=== PATIENT | male | born 1935 | race African-American/Black ===

== ENCOUNTER 2017-12-07 19:42 | Inpatient (IN) | payer MEDICARE, BC ==
[~2017-12-07] VITALS: Ht 193 cm; Wt 120.0 kg
[~2017-12-07 19:42] MED LIST: HYDR50TA5 PO; LORT5TAB PO; [UNRECOGNIZED DRUG - OTHER] PO
[2017-12-07] MEDS ORDERED: IOHEXOL 350 MG/ML 10 ML VIAL (for RAD DIAG) IVCONTRAST ONE (19:43)
[2017-12-07 19:48] VITALS: BP 196/95; PULSE 74; RESP 18; TEMP 98.6; O2SAT 100
[2017-12-07] MEDS ORDERED: NIFE30TA61 PO (20:36)
[2017-12-07] MEDS ORDERED: GLIM1 PO (20:37)
[2017-12-07] MEDS ORDERED: TIMO0.5S30 RIGHT EYE (20:38)
[2017-12-07] MEDS ORDERED: SODIUM CHLORID 0.9% 500 ML INJ 500 ML IV ONE (21:00)
[2017-12-07] MEDS ORDERED: SODIUM CHLORIDE 0.9% FLUSH 10 ML FLUSH IV FLUSH PRN (21:00)
[2017-12-07] MEDS ORDERED: MORPHINE SULFATE 4 MG/ML INJ IV PUSH ONE (21:00)
[2017-12-07 21:53] LABS: HEMATOCRIT 41.2 % (39.0-51.0); HEMOGLOBIN 14.1 GM/DL (13.0-17.0); MEAN CELL VOLUME 95.3 FL (80.0-100.0); MEAN CORPUSCULAR HEMOGLOBIN 32.7 PG (27.0-34.0); MEAN CORPUSCULAR HGB CONC 34.3 % (32.0-36.0); MEAN PLATELET VOLUME 10.7 FL (7.0-11.0); PLATELET COUNT 264 TH/MM3 (150-450); RED BLOOD COUNT 4.32 MIL/MM3 (4.50-5.90); RED CELL DISTRIBUTION WIDTH 12.4 % (11.6-17.2); WHITE BLOOD COUNT 9.4 TH/MM3 (4.0-11.0)
[2017-12-07 21:58] LABS: BILIRUBIN, URINE NEG (NEG); BLOOD, URINE NEG (NEG); GLUCOSE,URINE NEG (NEG); KETONE, URINE NEG (NEG); MUCUS URINE FEW /lpf (OCC); NITRITE,URINE NEG (NEG); SQUAMOUS EPITHELIAL CELL URINE <1 /hpf (0-5); URINE COLOR YELLOW (YELLW/STRAW); URINE LEUKOCYTE ESTERASE NEG (NEG)
[2017-12-07 22:08] LABS: INTERNATIONAL NORMALIZED RATIO 1.1 RATIO; PROTHROMBIN TIME - PATIENT 10.7 SEC (9.8-11.6)
[2017-12-07 22:10] LABS: ALBUMIN 4.5 GM/DL (3.4-5.0); AST (GOT) 16 U/L (15-37); BICARBONATE 25.6 MEQ/L (21.0-32.0); BLOOD UREA NITROGEN 15 MG/DL (7-18); CHLORIDE 103 MEQ/L (98-107); CREATININE 1.54 MG/DL (0.60-1.30); GLOMERULAR FILTRATION RATE 53 ML/MIN (>89); GLUCOSE,RANDOM 95 MG/DL (74-106); SODIUM (NA) 136 MEQ/L (136-145)
[2017-12-07 22:14] LABS: ALKALINE PHOSPHATASE 88 U/L (45-117); ALT (GPT) 17 U/L (12-78); TOTAL BILIRUBIN ADULT 1.1 MG/DL (0.2-1.0)
[2017-12-07 22:25] LABS: LYMPHOCYTES 18 % (9-44); MONOCYTES 20 % (0-8); NEUTROPHIL # MANUAL DIFF 5.6 TH/MM3 (1.8-7.7); POLYS (SEG NEUTROPHILS) 60 % (16-70)
--- NOTE | 2017-12-07 23:30 | PD ---
HPI Chief Complaint: Abdominal Pain Time Seen by Provider: 20:38 Travel History International Travel<30 days: No Contact w/Intl Traveler<30days: No Traveled to known affect area: No History of Present Illness HPI Patient is a 82 year old male who comes in complaining of abdominal pain. He says he has pain to entirety of his abdomen and the right side of his back. He says this has been going on for a few days now, coming and going. He denies nausea or vomiting. He does not know if the pain is exacerbated by anything he does. He says he thinks the back pain may be from working out at the gym. He says he had a normal bowel movement yesterday. He denies fever or chills. He took some Aleve at home without relief of his symptoms. Severity is mild. PFSH Past Medical History Diminished Hearing: No Glaucoma: Yes Hypertension: Yes Musculoskeletal: Yes (MIDLEVEL BACK PAIN SINCE LOC ON 05/28/07) Tetanus Vaccination: Never Vaccinated Past Surgical History Eye Surgery: Yes (RIGHT SX) Tonsillectomy: Yes Social History Alcohol Use: No Tobacco Use: No Substance Use: No Allergies-Medications (Allergen,Severity, Reaction): Coded Allergies: Wdbphny-Wpj-Drn Reductase Inhibitor (Verified Allergy, Unknown, 12/07/17) Reported Meds & Prescriptions Reported Meds & Active Scripts Active Reported Timolol Opth Drops 0.5 % Soln 1 Drop RIGHT EYE BID Nifedipine ER 24 HR (Nifedipine) 30 Mg Tab 30 Mg PO DAILY [Ameal] 1 Tab PO DAILY Review of Systems Except as stated in HPI: all other systems reviewed are Neg General / Constitutional: No: Fever, Chills HENT: No: Headaches, Lightheadedness Cardiovascular: No: Chest Pain or Discomfort Respiratory: No: Shortness of Breath Gastrointestinal: Positive: Abdominal Pain, No: Nausea, Vomiting Musculoskeletal: No: Myalgias, Edema Skin: No Rash, No Change in Pigmentation Neurologic: No: Weakness, Dizziness Physical Exam Narrative GENERAL: Awake and alert, in no acute distress. SKIN: Focused skin assessment warm/dry. HEAD: Atraumatic. Normocephalic. EYES: Pupils equal and round. No scleral icterus. ENT: Mucous membranes pink and moist. NECK: Trachea midline. No JVD. CARDIOVASCULAR: Regular rate and rhythm. No murmur appreciated. RESPIRATORY: No accessory muscle use. Clear to auscultation. Breath sounds equal bilaterally. GASTROINTESTINAL: Abdomen soft, nondistended. Mild diffuse tenderness to palpation. No rebound or guarding. No CVA tenderness. MUSCULOSKELETAL: No obvious deformities. No clubbing. No cyanosis. No edema. NEUROLOGICAL: Awake and alert. No obvious cranial nerve deficits. Motor grossly within normal limits. Normal speech. PSYCHIATRIC: Appropriate mood and affect; insight and judgment normal. Data Data Last Documented VS Vital Signs Date Time Temp Pulse Resp B/P (MAP) Pulse Ox O2 Delivery O2 Flow Rate FiO2 12/08/17 00:25 98 Room Air 12/07/17 23:55 82 16 171/96 (121) 12/07/17 19:48 98.6 Orders Orders Complete Blood Count With Diff (12/07/17 20:49) Comprehensive Metabolic Panel (12/07/17 20:49) Lipase (12/07/17 20:49) Prothrombin Time / Inr (Pt) (12/07/17 20:49) Act Partial Throm Time (Ptt) (12/07/17 20:49) Urinalysis - C+S If Indicated (12/07/17 20:49) Ct Abd/Pel W Iv Contrast(Rout) (12/07/17 20:49) Iv Access Insert/Monitor (12/07/17 20:49) Ecg Monitoring (12/07/17 20:49) Oximetry (12/07/17 20:49) Morphine Inj (Morphine Inj) (12/07/17 21:00) Sodium Chloride 0.9% Flush (Ns Flush) (12/07/17 21:00) Sodium Chlorid 0.9% 500 Ml Inj (Ns 500 M (12/07/17 21:00) Iohexol 350 Inj (Omnipaque 350 Inj) (12/07/17 19:43) Us Abdomen Gallbladder (12/08/17 ) Acetamin-Hydrocod 325-5 Mg ([place] 5-325 (12/08/17 03:45) Labs Laboratory Tests Test 12/07/17 21:10 12/07/17 21:36 White Blood Count 9.4 TH/MM3 Red Blood Count 4.32 MIL/MM3 Hemoglobin 14.1 GM/DL Hematocrit 41.2 % Mean Corpuscular Volume 95.3 FL Mean Corpuscular Hemoglobin 32.7 PG Mean Corpuscular Hemoglobin Concent 34.3 % Red Cell Distribution Width 12.4 % Platelet Count 264 TH/MM3 Mean Platelet Volume 10.7 FL CBC Comment AUTO DIFF Differential Total Cells Counted 100 Neutrophils % (Manual) 60 % Lymphocytes % 18 % Monocytes % 20 % Eosinophils % 2 % Neutrophils # (Manual) 5.6 TH/MM3 Differential Comment FINAL DIFF MANUAL Platelet Estimate NORMAL Platelet Morphology Comment NORMAL Prothrombin Time 10.7 SEC Prothromb Time International Ratio 1.1 RATIO Activated Partial Thromboplast Time 28.7 SEC Blood Urea Nitrogen 15 MG/DL Creatinine 1.54 MG/DL Random Glucose 95 MG/DL Total Protein 9.0 GM/DL Albumin 4.5 GM/DL Calcium Level 10.0 MG/DL Alkaline Phosphatase 88 U/L Aspartate Amino Transf (AST/SGOT) 16 U/L Alanine Aminotransferase (ALT/SGPT) 17 U/L Total Bilirubin 1.1 MG/DL Sodium Level 136 MEQ/L Potassium Level 4.6 MEQ/L Chloride Level 103 MEQ/L Carbon Dioxide Level 25.6 MEQ/L Anion Gap 7 MEQ/L Estimat Glomerular Filtration Rate 53 ML/MIN Lipase 163 U/L Urine Color YELLOW Urine Turbidity CLEAR Urine pH 6.0 Urine Specific [place] 1.016 Urine Protein NEG mg/dL Urine Glucose (UA) NEG mg/dL Urine Ketones NEG mg/dL Urine Occult Blood NEG Urine Nitrite NEG Urine Bilirubin NEG Urine Urobilinogen 2.0 mg/dL Urine Leukocyte Esterase NEG Urine RBC LESS THAN 1 /hpf Urine WBC LESS THAN 1 /hpf Urine Squamous Epithelial Cells <1 /hpf Urine Mucus FEW /lpf Microscopic Urinalysis Comment CULT NOT INDICATED MDM Medical Decision Making Medical Screen Exam Complete: Yes Emergency Medical Condition: Yes Medical Record Reviewed: Yes Differential Diagnosis colitis vs diverticulitis vs constipation vs dehydration vs muscle strain Narrative Course Patient is an 82-year-old male who comes in complaining of abdominal pain that radiates to his shoulder. Exam shows tenderness throughout the abdomen. IV established, labs sent. Labs show a total bilirubin of 1.1, no other acute abnormalities. CT abdomen and pelvis performed concerning for gallstones, possible gallbladder wall thickening. Ultrasound of the gallbladder performed shows a gallstone within the common bile duct. There is no evidence of cholecystitis at this time. Last 24 hours Impressions Gall Bladder Ultrasound 12/08/17 0000 Signed Impressions: CONCLUSION: 1. Gallstones are confirmed within the common bile duct in the gallbladder. Th e gallbladder wall is slightly thickened but not directly tender in the right u pper quadrant directly over the gallbladder. Fatty liver. Multiple renal cysts Abdomen/Pelvis CT 12/07/172048 Signed Impressions: CONCLUSION: 1. Multiple gallstones in a dilated common bile duct. Questionable wall thicke lon the gallbladder could be acute cholecystitis. 2. Multiple bladder diverticula Patient given morphine for pain. He then requested hydrocodone for continued pain. He says the hydrocodone helped relieve his symptoms. Patient will need admission for ERCP at this time. Diagnosis Primary Impression: Choledocholithiasis Admitting Information Admitting Physician Requests: Admit Melissa Tolbert MD Dec 07, 2017 23:30
--- NOTE | 2017-12-07 23:46 | RADRPT ---
EXAM DATE: 12/07/2017 11:24 PM EDT AGE/SEX: 82 years / Male INDICATIONS: Abdomen pain past 2 days. CLINICAL DATA: This is the patient's initial encounter. Patient reports that signs and symptoms have been present for 2 days and indicates a pain score of 6/10. MEDICAL/SURGICAL HISTORY: . . ORAL CONTRAST: No oral contrast ingested. RADIATION DOSE: 15.84 CTDI (mGy) COMPARISON: No prior exams available for comparison. TECHNIQUE: Multiple contiguous axial images were obtained through the abdomen and pelvis following b olus infusion of 75 ml Omnipaque 350 (iohexol) nonionic water-soluble contrast as a single exam dos e. No oral contrast ingested. Using automated exposure control and adjustment of the mA and/or kV ac cording to patient size, radiation dose was kept as low as reasonably achievable to obtain optimal di agnostic quality images. DICOM format image data is available electronically for review and comparis on. FINDINGS: Lower Lungs: The visualized lower lungs are clear. Liver: The liver has a homogeneous density without space-occupying lesion. The gallbladder is distend ed with some areas of inhomogeneous liver which could be thickened. There are some mixed density and a dilated common bile duct measuring up to 15 mm across consistent with gallstones. Spleen: Homogeneous density without enlargement. Pancreas: Unremarkable without mass or calcification. Kidneys: There are multiple low-density lesions in the right kidney and a few small remote left kidn ey. Small cortical calcification on the left. Adrenal Glands: Unremarkable. Aorta: The aorta and proximal iliac vessels are grossly unremarkable without aneurysmal dilation. Bowel/Mesentery: The bowel loops are grossly unremarkable. The cecum and sigmoid colon have a normal configuration. Abdominal Wall: Intact. Retroperitoneum: No evidence of adenopathy in the retrocrural, para-aortic, or deep pelvic regions. Bladder: Contours are smooth with at least one diverticulum anteriorly on the left. Markers within t he prostate Reproductive Organs: No abnormal masses or calcifications seen. Inguinal: The inguinal region is unremarkable without evidence of adenopathy. Bony Structures: Unremarkable. CONCLUSION: 1. Multiple gallstones in a dilated common bile duct. Questionable wall thickening the gallbladder c ould be acute cholecystitis. 2. Multiple bladder diverticula Electronically signed by: Oracio Nuñez MD 12/07/2017 11:45 PM EDT
[2017-12-07 23:55] VITALS: BP 171/96; PULSE 82; RESP 16; O2SAT 98
[2017-12-08] VITALS (7 sets, daily range): BP systolic 157–165; BP diastolic 77–94; PULSE 58–84; RESP 16–19; TEMP 97.6–98.7; O2SAT 97–100
[2017-12-08] MEDS ORDERED: ACETAMINOPHEN/HYDROcodone 325 MG/5 MG TAB PO ONE (03:45)
--- NOTE | 2017-12-08 04:09 | RADRPT ---
EXAM DATE: 12/08/2017 3:59 AM EDT AGE/SEX: 82 years / Male INDICATIONS: RUQ pain. CLINICAL DATA: This is the patient's initial encounter. Patient reports that signs and/or symptoms h ave been present for 1 day and indicates a pain score of 7/10. MEDICAL/SURGICAL HISTORY: Hypertension. Glaucoma. . Right eye. Left elbow. COMPARISON: No prior exams available for comparison. MEASUREMENTS (cm x cm x cm): Liver:__ 16.0 cm length Common Bile Duct:__ 10mm FINDINGS: Liver: Increased echotexture without focal lesion or ductal dilation. Portal Vein: Hepatopedal flow seen in portal vein. Common Duct: A small gallstones identified in the common bile duct. Gallbladder: Numerous small stones are noted. Slight gallbladder wall thickening but not obviously t wilber over the gallbladder Pancreas: Not well visualized. Right Kidney: Multiple cysts are noted. The pneumocephalus cyst does have a few small thin septation s. Other: None. CONCLUSION: 1. Gallstones are confirmed within the common bile duct in the gallbladder. The gallbladder wall is slightly thickened but not directly tender in the right upper quadrant directly over the gallbladder. Fatty liver. Multiple renal cysts Electronically signed by: Oracio Nuñez MD 12/08/2017 4:08 AM EDT
[2017-12-08] MEDS ORDERED: SENNOSIDES 8.6 MG TAB PO PRN (04:45)
[2017-12-08] MEDS ORDERED: NALOXONE HCL 0.4 MG/ML AMP IV PUSH PRN (04:45)
[2017-12-08] MEDS ORDERED: SODIUM CHLORIDE 0.9% FLUSH 10 ML FLUSH IV FLUSH PRN (04:45)
[2017-12-08] MEDS ORDERED: BISACODYL 10 MG SUPP RECTAL PRN (04:45)
[2017-12-08] MEDS ORDERED: ACETAMINOPHEN 325 MG TAB PO PRN (04:45)
[2017-12-08] MEDS ORDERED: LACTULOSE SYRUP 20 GM/30 ML CUP PO PRN (04:45)
[2017-12-08] MEDS ORDERED: MAGNESIUM HYDROXIDE SUSP 30 ML CUP PO PRN (04:45)
[2017-12-08] MEDS: SODIUM CHLOR 0.9% 1000 ML INJ 1,000 ML IV SCH ×2 (04:58→15:00)
[2017-12-08] MEDS ORDERED: ONDANSETRON ODT 4 MG TAB PO PRN (05:00)
--- NOTE | 2017-12-08 08:56 | PD.CONS ---
HPI History of Present Illness This is a 82 year old M with PMH significant for HTN and glaucoma who presented to the ER late last night with complaints of abdominal pain that began two days ago. Pain is located in his upper abdomen. Describes pain as dull, sharp, and aching. States pain is constant, radiates to the right side of his back. Has received relief in the pain since receiving [place]. Denies any associated nausea and vomiting. Denies changes in bowel habits, acid reflux, heartburn. T bili is mildly elevated, LFTs otherwise normal. Imaging consistent with choledocholithiasis. Pt denies history of gallstones. Has never had EGD or colonoscopy. Denies ETOH, smoking, and illicit drug use. Takes Aleve occasionally for pain. (Janeth Gutierrez) PFSH Past Medical History HTN Glaucoma Past Surgical History Bladder stone removal (Janeth Gutierrez) Coded Allergies: Ixgqrop-Vpd-Jed Reductase Inhibitor (Verified Allergy, Unknown, 12/07/17) Social History Denies ETOH Denies smoking Denies illicit drug use (Janeth Gutierrez) Review of Systems Gastrointestinal: COMPLAINS OF: Abdominal pain, DENIES: Black stools, Bloody stools, Constipation, Diarrhea, Nausea, Vomiting, Difficulty Swallowing, Odynophagia, Swelling of Abdomen, Heartburn, Hematemesis (Janeth Gutierrez) GI Exam Vitals I&O Vital Signs Date Time Temp Pulse Resp B/P (MAP) Pulse Ox O2 Delivery O2 Flow Rate FiO2 12/08/17 08:46 97.6 58 19 163/85 (111) 100 12/08/17 04:44 69 16 157/89 (111) 98 Room Air 12/08/17 00:25 98 Room Air 12/07/17 23:55 82 16 171/96 (121) 98 Room Air 12/07/17 19:48 98.6 74 18 196/95 (128) 100 Imaging Last Impressions Gall Bladder Ultrasound 12/08/17 0000 Signed Impressions: CONCLUSION: 1. Gallstones are confirmed within the common bile duct in the gallbladder. Th e gallbladder wall is slightly thickened but not directly tender in the right u pper quadrant directly over the gallbladder. Fatty liver. Multiple renal cysts Abdomen/Pelvis CT 12/07/172048 Signed Impressions: CONCLUSION: 1. Multiple gallstones in a dilated common bile duct. Questionable wall thicke lon the gallbladder could be acute cholecystitis. 2. Multiple bladder diverticula Laboratory Test 12/07/17 21:10 12/07/17 21:36 White Blood Count 9.4 TH/MM3 Red Blood Count 4.32 MIL/MM3 Hemoglobin 14.1 GM/DL Hematocrit 41.2 % Mean Corpuscular Volume 95.3 FL Mean Corpuscular Hemoglobin 32.7 PG Mean Corpuscular Hemoglobin Concent 34.3 % Red Cell Distribution Width 12.4 % Platelet Count 264 TH/MM3 Mean Platelet Volume 10.7 FL CBC Comment AUTO DIFF Differential Total Cells Counted 100 Neutrophils % (Manual) 60 % Lymphocytes % 18 % Monocytes % 20 % Eosinophils % 2 % Neutrophils # (Manual) 5.6 TH/MM3 Differential Comment FINAL DIFF MANUAL Platelet Estimate NORMAL Platelet Morphology Comment NORMAL Prothrombin Time 10.7 SEC Prothromb Time International Ratio 1.1 RATIO Activated Partial Thromboplast Time 28.7 SEC Blood Urea Nitrogen 15 MG/DL Creatinine 1.54 MG/DL Random Glucose 95 MG/DL Total Protein 9.0 GM/DL Albumin 4.5 GM/DL Calcium Level 10.0 MG/DL Alkaline Phosphatase 88 U/L Aspartate Amino Transf (AST/SGOT) 16 U/L Alanine Aminotransferase (ALT/SGPT) 17 U/L Total Bilirubin 1.1 MG/DL Sodium Level 136 MEQ/L Potassium Level 4.6 MEQ/L Chloride Level 103 MEQ/L Carbon Dioxide Level 25.6 MEQ/L Anion Gap 7 MEQ/L Estimat Glomerular Filtration Rate 53 ML/MIN Lipase 163 U/L Urine Color YELLOW Urine Turbidity CLEAR Urine pH 6.0 Urine Specific [place] 1.016 Urine Protein NEG mg/dL Urine Glucose (UA) NEG mg/dL Urine Ketones NEG mg/dL Urine Occult Blood NEG Urine Nitrite NEG Urine Bilirubin NEG Urine Urobilinogen 2.0 mg/dL Urine Leukocyte Esterase NEG Urine RBC LESS THAN 1 /hpf Urine WBC LESS THAN 1 /hpf Urine Squamous Epithelial Cells <1 /hpf Urine Mucus FEW /lpf Microscopic Urinalysis Comment CULT NOT INDICATED Physical Examination HEENT: Normocephalic; atraumatic CHEST: Even/unlabored CARDIAC: RRR ABDOMEN: Soft, nondistended, mild upper abdominal tenderness, bowel sounds active EXTREMITIES: No clubbing, cyanosis, or edema. SKIN: Normal; no rash; no jaundice. GRIND OPERATOR: Alert and oriented times three. (Janeth Gutierrez) Assessment and Plan Plan Assessment: - Choledocholithiasis Pt complaining of upper abdominal pain for the past two days, radiating to the right side of his back, states constant, described as sharp, dull, and aching. Denies associated nausea and vomiting. T bili slightly elevated at 1.1 otherwise LFTs WNL Gallbladder US --> Gallstones are confirmed within the common bile duct in the gallbladder. The gallbladder wall is slightly thickened but not directly tender in the right upper quadrant directly over the gallbladder. Fatty liver. Multiple renal cysts CT abdomen and pelvis W IV contrast --> Multiple gallstones in a dilated common bile duct. Questionable wall thickening the gallbladder could be acute cholecystitis. Multiple bladder diverticula Pt has never had EGD Plan: ERCP today Obtain consent Keep NPO Monitor labs Further recommendations based on findings of above Pt has been seen and examined by myself and Dr. Lan and this note is written on his behalf (Janeth Gutierrez) Physician Comments Seen and examined with TORI, cholidocholithiasis. ERCP today by Dr Bhardwaj. Monitor labs. Dr Daley to follow. Thank you (Sekou Lan MD) Janeth Gutierrez Dec 08, 2017 08:55 Sekou Lan MD Dec 08, 2017 17:17
[2017-12-08] MEDS: TIMOLOL MALEATE 0.5% OPHT SOLN 5 ML BTL RIGHT EYE SCH ×2 (09:00→22:54)
--- NOTE | 2017-12-08 10:32 | HHI.HP ---
[facility] Service [facility] Primary Care Physician Kvng Mitchell M.D. Admission Diagnosis choledocalithiasis Diagnoses: Chief Complaint: abd pain Travel History International Travel<30 Days: No Contact w/Intl Traveler <30 Da: No Traveled to Known Affected Are: No History of Present Illness 82-year-old black male being admitted for intractable abdominal pain Patient was in his usual state of health until sometime yesterday when he began experiencing epigastric abdominal pain that would radiate to his back up to his right shoulder blade. Denies having nausea vomiting or any changes in his bowel habits. Says he took some Gas-X and relieved to no avail. Thus he decided come to emergency department. Denies any fevers or chills In the emergency department gallbladder ultrasound was obtained which showed some gallbladder thickening and stones in the common bile duct. CMP overall was unremarkable. CT abd showing no significant acute findings apart from gallstones in CBD. Patient says that the hydrocodone that they gave him actually helped his pain significantly. Review of Systems Except as stated in HPI: all other systems reviewed are Neg Past Family Social History Past Medical History HTN Glaucoma Past Surgical History Bladder stone removal Allergies: Coded Allergies: Rypidjp-Znp-Jiv Reductase Inhibitor (Verified Allergy, Unknown, 12/07/17) Family History Father with lung disease Says mother of drinking Social History Denies illicit drug use Says he stopped smoking and drinking over 40 years ago Physical Exam Vital Signs Vital Signs Date Time Temp Pulse Resp B/P (MAP) Pulse Ox O2 Delivery O2 Flow Rate FiO2 12/08/17 08:46 97.6 58 19 163/85 (111) 100 12/08/17 04:44 69 16 157/89 (111) 98 Room Air 12/08/17 00:25 98 Room Air 12/07/17 23:55 82 16 171/96 (121) 98 Room Air 12/07/17 19:48 98.6 74 18 196/95 (128) 100 Physical Exam VS: afebrile GENERAL: well-nourished elderly black male SKIN: Warm and dry. EYES: P No scleral icterus. No injection or drainage. ENT: No nasal bleeding or discharge. Mucous membranes pink and moist. CARDIOVASCULAR: Regular rate and rhythm. no murmurs RESPIRATORY: No accessory muscle use. Clear to auscultation. Breath sounds equal bilaterally. GASTROINTESTINAL: Abdomen soft, non-tender, nondistended. Extremities: No clubbing, cyanosis, or edema. No obvious deformities. MUSCULOSKELETAL: adequate muscle bulk and tone for age and habitus NEUROLOGICAL: Awake and alert. No obvious cranial nerve deficits. No facial droop nor slurred speech noted. PSYCHIATRIC: Appropriate mood and affect; insight and judgment normal. Laboratory Laboratory Tests Test 12/07/17 21:10 12/07/17 21:36 White Blood Count 9.4 Red Blood Count 4.32 Hemoglobin 14.1 Hematocrit 41.2 Mean Corpuscular Volume 95.3 Mean Corpuscular Hemoglobin 32.7 Mean Corpuscular Hemoglobin Concent 34.3 Red Cell Distribution Width 12.4 Platelet Count 264 Mean Platelet Volume 10.7 CBC Comment AUTO DIFF Differential Total Cells Counted 100 Neutrophils % (Manual) 60 Lymphocytes % 18 Monocytes % 20 Eosinophils % 2 Neutrophils # (Manual) 5.6 Differential Comment FINAL DIFF MANUAL Platelet Estimate NORMAL Platelet Morphology Comment NORMAL Prothrombin Time 10.7 Prothromb Time International Ratio 1.1 Activated Partial Thromboplast Time 28.7 Blood Urea Nitrogen 15 Creatinine 1.54 Random Glucose 95 Total Protein 9.0 Albumin 4.5 Calcium Level 10.0 Alkaline Phosphatase 88 Aspartate Amino Transf (AST/SGOT) 16 Alanine Aminotransferase (ALT/SGPT) 17 Total Bilirubin 1.1 Sodium Level 136 Potassium Level 4.6 Chloride Level 103 Carbon Dioxide Level 25.6 Anion Gap 7 Estimat Glomerular Filtration Rate 53 Lipase 163 Urine Color YELLOW Urine Turbidity CLEAR Urine pH 6.0 Urine Specific [place] 1.016 Urine Protein NEG Urine Glucose (UA) NEG Urine Ketones NEG Urine Occult Blood NEG Urine Nitrite NEG Urine Bilirubin NEG Urine Urobilinogen 2.0 Urine Leukocyte Esterase NEG Urine RBC LESS THAN 1 Urine WBC LESS THAN 1 Urine Squamous Epithelial Cells <1 Urine Mucus FEW Microscopic Urinalysis Comment CULT NOT INDICATED Result Diagram: 12/07/17210912/07/172109 Imaging Last Impressions Gall Bladder Ultrasound 12/08/17 0000 Signed Impressions: CONCLUSION: 1. Gallstones are confirmed within the common bile duct in the gallbladder. Th e gallbladder wall is slightly thickened but not directly tender in the right u pper quadrant directly over the gallbladder. Fatty liver. Multiple renal cysts Abdomen/Pelvis CT 12/07/172048 Signed Impressions: CONCLUSION: 1. Multiple gallstones in a dilated common bile duct. Questionable wall thicke lon the gallbladder could be acute cholecystitis. 2. Multiple bladder diverticula Caprini VTE Risk Assessment Caprini VTE Risk Assessment: Mod/High Risk (score >= 2) Caprini Risk Assessment Model Point Value = 1 Point Value = 2 Point Value = 3 Point Value = 5 Age 41-60 Minor surgery BMI > 25 kg/m2 Swollen legs Varicose veins or History of unexplained or recurrent spontaneous Oral contraceptives or hormone replacement Sepsis (< 1 month) Serious lung disease, including pneumonia (< 1 month) Abnormal pulmonary function Acute myocardial infarction Congestive heart failure (< 1 month) History of inflammatory bowel disease Medical patient at bed rest Age 61-74 Arthroscopic surgery Major open surgery (> 45 min) Laparoscopic surgery (> 45 min) Malignancy Confined to bed (> 72 hours) Immobilizing plaster cast Central venous access Age >= 75 History of VTE Family history of VTE Factor V Leiden Prothrombin 20298P Lupus anticoagulant Anticardiolipin antibodies Elevated serum homocysteine Heparin-induced thrombocytopenia Other congenital or acquired thrombophilia Stroke (< 1 month) Elective arthroplasty Hip, pelvis, or leg fracture Acute spinal cord injury (< 1 month) Prophylaxis Regimen Total Risk Factor Score Risk Level Prophylaxis Regimen 0-1 Low Early ambulation 2 Moderate Order ONE of the following: *Sequential Compression Device (SCD) *Heparin 5000 units SQ BID 3-4 Higher Order ONE of the following medications: *Heparin 5000 units SQ TID *Enoxaparin/Lovenox 40 mg SQ daily (WT < 150 kg, CrCl > 30 mL/min) *Enoxaparin/Lovenox 30 mg SQ daily (WT < 150 kg, CrCl > 10-29 mL/min) *Enoxaparin/Lovenox 30 mg SQ BID (WT < 150 kg, CrCl > 30 mL/min) AND/OR *Sequential Compression Device (SCD) 5 or more Highest Order ONE of the following medications: *Heparin 5000 units SQ TID (Preferred with Epidurals) *Enoxaparin/Lovenox 40 mg SQ daily (WT < 150 kg, CrCl > 30 mL/min) *Enoxaparin/Lovenox 30 mg SQ daily (WT < 150 kg, CrCl > 10-29 mL/min) *Enoxaparin/Lovenox 30 mg SQ BID (WT < 150 kg, CrCl > 30 mL/min) AND *Sequential Compression Device (SCD) Assessment and Plan Assessment and Plan 82-year-old black male being admitted for intractable abdominal pain Abdominal pain -GI consulted for possible ERCP -N.p.o -[place] as needed pain -CMP unremarkable Continue home nifedipine for hypertension and timolol for glaucoma Mild EWA -NS Hold lovenox given procedure planned Physician Certification 2 Midnight Certification Type: Admission for Inpatient Services Order for Inpatient Services The services are ordered in accordance with Medicare regulations or non- Medicare payer requirements, as applicable. In the case of services not specified as inpatient-only, they are appropriately provided as inpatient services in accordance with the 2-midnight benchmark. Estimated LOS (days): 2 2 days is the estimated time the patient will need to remain in the hospital, assuming treatment plan goals are met and no additional complications. Post-Hospital Plan: Home Rubén Hart MD Dec 08, 2017 10:32
[2017-12-08] MEDS: DOCUSATE SODIUM 50 MG/SENNA 8.6 MG TAB PO SCH ×2 (11:41→22:54)
[2017-12-08] MEDS: NIFEdipine 30 MG SUSTAINED RELEASE TAB PO SCH (11:41)
[2017-12-08] MEDS: SODIUM CHLORIDE 0.9% FLUSH 10 ML FLUSH IV FLUSH SCH ×2 (11:42→22:54)
[2017-12-08] MEDS ORDERED: ROCURONIUM INJ 50 MG/5 ML SYRINGE IV PUSH ONE (12:00)
[2017-12-08] MEDS ORDERED: LIDOCAINE HCL 1% PF 5 ML SYRINGE OTHER ONE (12:00)
[2017-12-08] MEDS ORDERED: PROPOFOL 200 MG/20 ML AMP IV ONE (12:00)
[2017-12-08] MEDS ORDERED: ePHEDrine/NS 25 MG/5 ML SYRINGE IV ONE (12:00)
[2017-12-08] MEDS ORDERED: DEXAMETHASONE SOD PHOS 4 MG/ML VIAL IV ONE (12:00)
[2017-12-08] MEDS ORDERED: GLYCOPYRROLATE 1 MG/5 ML SYRINGE IV PUSH ONE (12:00)
[2017-12-08] MEDS ORDERED: ONDANSETRON HCL 4 MG/2 ML VIAL IV ONE (12:00)
[2017-12-08] MEDS: ACETAMINOPHEN/HYDROcodone 325 MG/5 MG TAB PO PRN (13:37)
[2017-12-08] MEDS ORDERED: GEMF600T PO (13:40)
[2017-12-08] MEDS ORDERED: SUGAMMADEX SODIUM 200 MG/2 ML VIAL IV PUSH ONE (17:13)
[2017-12-08] MEDS ORDERED: INDOMETHACIN 50 MG SUPP RECTAL ONE (17:44)
[2017-12-08] MEDS ORDERED: CIPROFLOXACIN 400 MG PREMIX 200 ML ONE (17:51)
[2017-12-08] MEDS ORDERED: IOHEXOL 350 MG/ML 50 ML BTL (for RAD DIAG) OTHER ONE (18:10)
[2017-12-08] MEDS ORDERED: GLUCAGON 1 MG/ML VIAL IV PUSH ONE (18:12)
[2017-12-08] MEDS ORDERED: DO NOT ADM ANY ANTICOAGULANT DRUGS PRN (20:15)
[2017-12-09 02:58] VITALS: BP 134/74; PULSE 85; RESP 16; TEMP 98.7; O2SAT 98
[2017-12-09] MEDS: SODIUM CHLOR 0.9% 1000 ML INJ 1,000 ML IV SCH (05:05)
[2017-12-09] MEDS: ACETAMINOPHEN/HYDROcodone 325 MG/5 MG TAB PO PRN ×2 (05:10→08:21)
[2017-12-09] MEDS ORDERED: CIPROFLOXACIN/DEXT 400 MG/200 ML IV SCH (06:00)
[2017-12-09 06:18] LABS: AUTOMATED NEUTROPHIL # 6.6 TH/MM3 (1.8-7.7); BASOPHIL % 0.1 % (0.0-2.0); EOSINOPHIL % 0.1 % (0.0-4.0); HEMATOCRIT 39.9 % (39.0-51.0); HEMOGLOBIN 13.3 GM/DL (13.0-17.0); LYMPH % 10.1 % (9.0-44.0); LYMPHOCYTE # 0.8 TH/MM3 (1.0-4.8); MEAN CELL VOLUME 94.7 FL (80.0-100.0); MEAN CORPUSCULAR HEMOGLOBIN 31.6 PG (27.0-34.0); MEAN CORPUSCULAR HGB CONC 33.4 % (32.0-36.0); MEAN PLATELET VOLUME 9.5 FL (7.0-11.0); MONOCYTE # 0.7 TH/MM3 (0-0.9); NEUT % 81.7 % (16.0-70.0); PLATELET COUNT 222 TH/MM3 (150-450); RED BLOOD COUNT 4.21 MIL/MM3 (4.50-5.90); RED CELL DISTRIBUTION WIDTH 12.4 % (11.6-17.2); WHITE BLOOD COUNT 8.1 TH/MM3 (4.0-11.0)
[2017-12-09 06:42] LABS: ALBUMIN 4.2 GM/DL (3.4-5.0); ALT (GPT) 21 U/L (12-78); AST (GOT) 27 U/L (15-37); BICARBONATE 26.8 MEQ/L (21.0-32.0); BLOOD UREA NITROGEN 15 MG/DL (7-18); CALCIUM 9.4 MG/DL (8.5-10.1); CHLORIDE 102 MEQ/L (98-107); CREATININE 1.49 MG/DL (0.60-1.30); GLOMERULAR FILTRATION RATE 55 ML/MIN (>89); GLUCOSE,RANDOM 111 MG/DL (74-106); SODIUM (NA) 138 MEQ/L (136-145)
[2017-12-09 06:44] LABS: ALKALINE PHOSPHATASE 90 U/L (45-117); TOTAL BILIRUBIN ADULT 0.9 MG/DL (0.2-1.0); TOTAL PROTEIN 8.7 GM/DL (6.4-8.2)
[2017-12-09 07:25] VITALS: BP 165/76; PULSE 85; RESP 19; TEMP 98.3; O2SAT 100
--- NOTE | 2017-12-09 07:33 | EKG ---
Date Performed: 12/08/2017 Time Performed: 17:28:33 PTAGE: 82 years EKG: Sinus rhythm WITH SINUS ARRHYTHMIA MARKED LEFT AXIS DEVIATION ABNORMAL ECG INTERPRETATION BASED ON A DEFAULT AGE OF 40 YEARS PREVIOUS TRACING : 03/25/2008 17.15 DOCTOR: Oracio Moran Interpretating Date/Time 12/09/2017 07:30:14
[2017-12-09] MEDS: NIFEdipine 30 MG SUSTAINED RELEASE TAB PO SCH (08:21)
[2017-12-09] MEDS: TIMOLOL MALEATE 0.5% OPHT SOLN 5 ML BTL RIGHT EYE SCH (08:22)
[2017-12-09] MEDS: DOCUSATE SODIUM 50 MG/SENNA 8.6 MG TAB PO SCH (08:22)
[2017-12-09] MEDS: SODIUM CHLORIDE 0.9% FLUSH 10 ML FLUSH IV FLUSH SCH (08:22)
--- NOTE | 2017-12-09 09:35 | HHI.GIFU ---
Subjective Remarks Pt reports some pain this morning, resolved after taking [place] Denies nausea and vomiting He is currently NPO Would like diet advanced Objective Vitals I&O Vital Signs Date Time Temp Pulse Resp B/P (MAP) Pulse Ox O2 Delivery O2 Flow Rate FiO2 12/09/17 07:25 98.3 85 19 165/76 (105) 100 12/09/17 06:10 14 12/09/17 02:58 98.7 85 16 134/74 (94) 98 12/08/17 23:36 98.7 84 17 161/81 (107) 97 12/08/17 20:15 97.3 92 14 156/88 (110) 99 Room Air 12/08/17 20:00 96 14 135/74 (94) 100 Room Air 12/08/17 19:55 97.3 103 14 128/86 (100) 100 Nasal Cannula 2 12/08/17 16:45 97.9 63 18 165/94 (117) 100 12/08/17 13:02 97.7 58 19 165/77 (106) 100 12/08/17 12:08 97.7 58 19 165/77 (106) 100 I/O 12/08/17 12/08/17 12/08/17 12/09/17 12/09/17 12/09/17 07:00 15:00 23:00 07:00 15:00 23:00 Intake Total 500 ml 2600 ml Output Total 650 ml Balance 500 ml 2600 ml -650 ml Intake IV Total 500 ml 1200 ml Other 1400 ml Output Urine Total 650 ml # Voids 5 Laboratory Laboratory Tests Test 12/09/17 05:20 White Blood Count 8.1 Red Blood Count 4.21 Hemoglobin 13.3 Hematocrit 39.9 Mean Corpuscular Volume 94.7 Mean Corpuscular Hemoglobin 31.6 Mean Corpuscular Hemoglobin Concent 33.4 Red Cell Distribution Width 12.4 Platelet Count 222 Mean Platelet Volume 9.5 Neutrophils (%) (Auto) 81.7 Lymphocytes (%) (Auto) 10.1 Monocytes (%) (Auto) 8.0 Eosinophils (%) (Auto) 0.1 Basophils (%) (Auto) 0.1 Neutrophils # (Auto) 6.6 Lymphocytes # (Auto) 0.8 Monocytes # (Auto) 0.7 Eosinophils # (Auto) 0.0 Basophils # (Auto) 0.0 CBC Comment DIFF FINAL Differential Comment Blood Urea Nitrogen 15 Creatinine 1.49 Random Glucose 111 Total Protein 8.7 Albumin 4.2 Calcium Level 9.4 Alkaline Phosphatase 90 Aspartate Amino Transf (AST/SGOT) 27 Alanine Aminotransferase (ALT/SGPT) 21 Total Bilirubin 0.9 Sodium Level 138 Potassium Level 4.3 Chloride Level 102 Carbon Dioxide Level 26.8 Anion Gap 9 Estimat Glomerular Filtration Rate 55 Imaging Last Impressions Gall Bladder Ultrasound 12/08/17 0000 Signed Impressions: CONCLUSION: 1. Gallstones are confirmed within the common bile duct in the gallbladder. Th e gallbladder wall is slightly thickened but not directly tender in the right u pper quadrant directly over the gallbladder. Fatty liver. Multiple renal cysts Abdomen/Pelvis CT 12/07/172048 Signed Impressions: CONCLUSION: 1. Multiple gallstones in a dilated common bile duct. Questionable wall thicke lon the gallbladder could be acute cholecystitis. 2. Multiple bladder diverticula Physical Exam HEENT: Normocephalic; atraumatic CHEST: Even/unlabored CARDIAC: RRR ABDOMEN: Soft, nondistended, nontender; bowel sounds active EXTREMITIES: No clubbing, cyanosis, or edema. SKIN: Normal; no rash; no jaundice. [employer]PI[employer] DEVELOPER: Alert and oriented times three. Assessment and Plan Plan Assessment: - Choledocholithiasis Pt complaining of upper abdominal pain for the past two days, radiating to the right side of his back, states constant, described as sharp, dull, and aching. Denies associated nausea and vomiting. T bili slightly elevated at 1.1 otherwise LFTs WNL Gallbladder US --> Gallstones are confirmed within the common bile duct in the gallbladder. The gallbladder wall is slightly thickened but not directly tender in the right upper quadrant directly over the gallbladder. Fatty liver. Multiple renal cysts CT abdomen and pelvis W IV contrast --> Multiple gallstones in a dilated common bile duct. Questionable wall thickening the gallbladder could be acute cholecystitis. 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 Multiple large stones 10-12 mm in size seen in CBD, CHD, no attempt made to remove them as sphincterotome could not be advanced deep into the CBD, LINDA tip catheter was used for deep cannulation (12/09) Pt reports some RUQ pain this morning, resolved after a [place]. Denies nausea and vomiting. LFTs remain unremarkable. Afebrile, no leukocytosis. Pt currently NPO and would like diet advanced. Plan: Full liquids Can advance to regular diet at lunch if tolerating OK to DC if pt tolerating PO and asymptomatic Spyglass done outpatient to break up the stone Have pt follow up with GI after DC Pt has been seen and examined by myself and Dr. Daley and this note is written on her behalf Janeth Gutierrez Dec 09, 2017 09:35
[2017-12-09 11:04] VITALS: BP 177/74; PULSE 97; RESP 19; TEMP 98.4; O2SAT 99
[2017-12-09] MEDS ORDERED: HYDR-3516 PO (11:14)
--- NOTE | 2017-12-09 11:14 | HHI.DCPOC ---
Discharge Care Plan Diagnosis: (1) Choledocholithiasis Goals to Promote Your Health * To prevent worsening of your condition and complications * To maintain your health at the optimal level Directions to Meet Your Goals Take your medications as prescribed Follow your dietary instruction Follow activity as directed Keep your appointments as scheduled Take your immunizations and boosters as scheduled If your symptoms worsen call your PCP, if no PCP go to Urgent Care Center or Emergency Room Smoking is Dangerous to Your Health. Avoid second hand smoke Call the 24-hour hour crisis hotline for domestic abuse at Rubén Hart MD Dec 09, 2017 11:14
--- NOTE | 2017-12-09 11:17 | HHI.PR ---
Subjective Remarks Nursing denies any deterioration since last night. Patient himself reports his pain is still there but much improved since admission and is responding very nicely with hydrocodone. Objective Vital Signs Date Time Temp Pulse Resp B/P (MAP) Pulse Ox O2 Delivery O2 Flow Rate FiO2 12/09/17 11:04 98.4 97 19 177/74 (108) 99 12/09/17 09:39 20 12/09/17 07:25 98.3 85 19 165/76 (105) 100 12/09/17 02:58 98.7 85 16 134/74 (94) 98 12/08/17 23:36 98.7 84 17 161/81 (107) 97 12/08/17 20:15 97.3 92 14 156/88 (110) 99 Room Air 12/08/17 20:00 96 14 135/74 (94) 100 Room Air 12/08/17 19:55 97.3 103 14 128/86 (100) 100 Nasal Cannula 2 12/08/17 16:45 97.9 63 18 165/94 (117) 100 12/08/17 13:02 97.7 58 19 165/77 (106) 100 12/08/17 12:08 97.7 58 19 165/77 (106) 100 I/O 12/08/17 12/08/17 12/08/17 12/09/17 12/09/17 12/09/17 07:00 15:00 23:00 07:00 15:00 23:00 Intake Total 500 ml 2600 ml Output Total 650 ml Balance 500 ml 2600 ml -650 ml Intake IV Total 500 ml 1200 ml Other 1400 ml Output Urine Total 650 ml # Voids 5 Result Diagram: 12/09/17 0520 12/09/17 0520 Objective Remarks Abdomen soft, nontender, nondistended A/P Assessment and Plan Choledocholithiasis -Status post ERCP with stent placement. Repeat ERCP with stone extraction/ destruction anticipated in the next few weeks. P.o. pain medication as needed. Stable for discharge today if tolerating p.o. intake. Rubén Hart MD Dec 09, 2017 11:17
--- NOTE | 2017-12-09 12:55 | RADRPT ---
EXAM DATE: 12/09/2017 12:36 PM EDT AGE/SEX: 82 years / Male INDICATIONS: Biliary obstruction. CLINICAL DATA: This is the patient's initial encounter. Patient reports that signs and symptoms have been present for 2 days and indicates a pain score of Nonresponsive. MEDICAL/SURGICAL HISTORY: None. None. COMPARISON: [facility] [place], CT ABDOMEN & PELVIS W CONTRAST, 12/07/2017. . FINDINGS: An ERCP was performed by the ordering physician. The images demonstrate multiple filling defects in the common bile duct. Common bile duct is dilated measuring at least 1 cm, it is as large as the endo scope. On the final image, there is a biliary stent in good position. CONCLUSION: Choledocholithiasis with a stent left in place. Electronically signed by: Stephen Elizabeth MD 12/09/2017 12:54 PM EDT
== END 2017-12-09 12:11 | disposition home or self-care (01) | DRG 445 ==
LOC: NEPC 19:42 → NEDA 12-08 04:44 → NEPGCP 12-08 06:49
PROVIDERS: ADMIT Hospitalist; ATTEND Hospitalist
PROC: 0F798DZ Dilation of Common Bile Duct with Intraluminal Device, Via Natural or Artificial Opening Endoscopic (ICD-10-PCS; principal; 2017-12-08 17:34)
DX: K80.51 Calculus of bile duct without cholangitis or cholecystitis with obstruction (principal); N17.9 Acute kidney failure, unspecified; I10 Essential (primary) hypertension; K76.0 Fatty (change of) liver, not elsewhere classified; N28.1 Cyst of kidney, acquired; N32.3 Diverticulum of bladder; H40.9 Unspecified glaucoma; Z87.891 Personal history of nicotine dependence
CPT/HCPCS: 74177; 74330; 76705; 80053; 81001; 83690; 85007; 85025; 85027; 85610; 85730; 93005; 96361; 96374; C1769; C2625; J0744; J1100; J1610; J2270; J2405; J3010; J7030; J7040; Q9967